=== PATIENT | male | born 1945 | race Caucasian/White ===

== ENCOUNTER → 2017-12-08 08:02 | Outpatient (CLI) | payer OTHER | END | disposition home or self-care (01) | LOC: LAB 08:02 | DX: N18.2 Chronic kidney disease, stage 2 (mild) (principal); I10 Essential (primary) hypertension; R80.8 Other proteinuria; E11.21 Type 2 diabetes mellitus with diabetic nephropathy; I11.9 Hypertensive heart disease without heart failure; E11.9 Type 2 diabetes mellitus without complications; E78.2 Mixed hyperlipidemia; E03.8 Other specified hypothyroidism; E55.9 Vitamin D deficiency, unspecified; E58 Dietary calcium deficiency ==

== ENCOUNTER 2018-07-11 08:30 | Outpatient (CLI) | payer OTHER | END 2018-07-11 08:40 | disposition home or self-care (01) | LOC: SONOGRAMA 08:30 | DX: N43.40 Spermatocele of epididymis, unspecified (principal) ==

== ENCOUNTER → 2018-07-16 06:53 | Outpatient (CLI) | payer OTHER | END | disposition home or self-care (01) | LOC: LAB 06:53 | DX: E53.8 Deficiency of other specified B group vitamins (principal); D64.89 Other specified anemias; C18.9 Malignant neoplasm of colon, unspecified; I11.9 Hypertensive heart disease without heart failure; R06.02 Shortness of breath ==

== ENCOUNTER 2018-07-17 09:43 | Outpatient (CLI) | payer OTHER | END 2018-07-17 10:00 | disposition home or self-care (01) | LOC: LAB 09:43 | DX: Z12.11 Encounter for screening for malignant neoplasm of colon (principal); C18.9 Malignant neoplasm of colon, unspecified; D64.89 Other specified anemias; E03.8 Other specified hypothyroidism; E53.8 Deficiency of other specified B group vitamins ==

== ENCOUNTER 2018-08-15 11:11 | Outpatient (CLI) | payer OTHER | END 2018-08-15 11:22 | disposition home or self-care (01) | LOC: LAB 11:11 | DX: B20 Human immunodeficiency virus [HIV] disease (principal) ==

== ENCOUNTER → 2019-07-08 07:09 | Outpatient (CLI) | payer OTHER | END | disposition home or self-care (01) | LOC: LAB 07:09 | DX: R10.84 Generalized abdominal pain (principal); A05.8 Other specified bacterial foodborne intoxications; Z12.11 Encounter for screening for malignant neoplasm of colon ==

== ENCOUNTER 2019-07-17 06:13 | Outpatient (CLI) | payer OTHER | END 2019-07-17 06:21 | disposition home or self-care (01) | LOC: LAB 06:13 | DX: C61 Malignant neoplasm of prostate (principal); I10 Essential (primary) hypertension; E11.21 Type 2 diabetes mellitus with diabetic nephropathy; R80.8 Other proteinuria ==

== ENCOUNTER → 2020-07-15 06:14 | Outpatient (CLI) | payer OTHER | END | disposition home or self-care (01) | LOC: LAB 06:14 | PROVIDERS: ATTEND Internal Medicine Cardiovascular Disease | DX: I10 Essential (primary) hypertension (principal); E11.9 Type 2 diabetes mellitus without complications; E03.8 Other specified hypothyroidism; E78.2 Mixed hyperlipidemia; Z12.11 Encounter for screening for malignant neoplasm of colon; N40.0 Benign prostatic hyperplasia without lower urinary tract symptoms; B20 Human immunodeficiency virus [HIV] disease; Z11.4 Encounter for screening for human immunodeficiency virus [HIV] ==

== ENCOUNTER 2020-08-02 08:50 | Outpatient (CLI) | payer OTHER | END 2020-08-02 08:59 | disposition home or self-care (01) | LOC: TOM 08:50 | PROVIDERS: ATTEND Urology | DX: K57.90 Diverticulosis of intestine, part unspecified, without perforation or abscess without bleeding (principal); R31.21 Asymptomatic microscopic hematuria; C61 Malignant neoplasm of prostate; N52.31 Erectile dysfunction following radical prostatectomy | CPT/HCPCS: 74178; Q9965 ==

== ENCOUNTER 2021-05-11 08:00 | Outpatient (CLI) | payer OTHER | END 2021-05-11 08:30 | disposition home or self-care (01) | LOC: PPH VACUNA 08:00 | DX: Z23 Encounter for immunization (principal) ==

== ENCOUNTER 2021-10-17 11:24 | Outpatient (CLI) | payer OTHER | END 2021-10-17 11:31 | disposition home or self-care (01) | LOC: RAD 11:24 | PROVIDERS: ATTEND Internal Medicine Cardiovascular Disease | DX: J44.9 Chronic obstructive pulmonary disease, unspecified (principal) ==

== ENCOUNTER 2021-12-09 08:00 | Outpatient (CLI) | payer OTHER | END 2021-12-09 08:30 | disposition home or self-care (01) | LOC: PPH VACUNA 08:00 | PROVIDERS: ATTEND Emergency Medicine Pediatric Emergency Medicine | DX: Z23 Encounter for immunization (principal) ==

== ENCOUNTER 2023-05-02 11:43 | Outpatient (CLI) | payer OTHER | END 2023-05-02 11:54 | disposition home or self-care (01) | LOC: TOM 11:43 | PROVIDERS: ATTEND Internal Medicine Cardiovascular Disease | DX: R51.9 Headache, unspecified (principal) ==

== ENCOUNTER 2023-12-24 08:11 | Emergency (ER) | payer OTHER ==
[~2023-12-24] VITALS: Ht 177.8 cm; Wt 75.3 kg
[2023-12-24] MEDS ORDERED: GLUMETZA1000 MG PO (08:29)
[2023-12-24] MEDS ORDERED: COZAAR50 MG PO (08:30)
[2023-12-24] MEDS ORDERED: SYNTHROID88 MCG PO (08:30)
[2023-12-24] MEDS ORDERED: METRONIDAZOLE/SODIUM CHLORIDE 500 MG/100 ML PIGGYBACK IV ONE (08:45)
[2023-12-24] MEDS ORDERED: DIPHENOXYLATE HCL/ATROPINE 1 UDTAB TABLET PO ONE (08:45)
[2023-12-24] MEDS ORDERED: FAMOtidine 10 MG/ML (4ML VIAL) IV PUSH ONE (08:45)
[2023-12-24] MEDS ORDERED: ONDANSETRON HCL 2 MG/ML VIAL IV ONE (08:45)
[2023-12-24] MEDS ORDERED: 0.9 % SODIUM CHLORIDE 1,000 ML IV SCH (08:45)
[2023-12-24 09:05] LABS: HEMATOCRIT 41.2 % (39.0-48.0); HEMOGLOBIN 14.6 g/dL (13-16.00); MEAN CELL VOLUME 88.6 fL (80.0-100.00); MEAN CORPUSCULAR HEMOGLOBIN 31.3 pg (27.00-32.0); MEAN CORPUSCULAR HGB CONC 35.4 g/dl (32.0-36.0); PLATELET COUNT 213 K/uL (150-450); RED BLOOD COUNT 4.65 M/uL (4.00-6.00); RED CELL DISTRIBUTION WIDTH 13.6 % (11.5-14.5)
[2023-12-24 09:40] LABS: ALBUMIN 3.6 gm/dL (3.4-5.0); BILIRUBIN TOTAL 1.09 mg/dL (0.3-1.2); CALCIUM 8.6 mg/dL (8.5-10.1); CREATININE SERUM 1.08 mg/dL (0.70-1.30); GFR 66.3; POTASSIUM 3.58 mEq/L (3.5-5.1); TOTAL PROTEIN 7.6 gm/dL (6.4-8.2)
[2023-12-24] MEDS ORDERED: METRONIDAZOLE500 MG PO (10:29)
[2023-12-24] MEDS ORDERED: PEPCID AC20 MG PO (10:29)
[2023-12-24] MEDS ORDERED: LEVSIN/SL0.125 MG SL (10:29)
== END 2023-12-24 10:37 | disposition home or self-care (01) ==
LOC: ER 08:11
PROVIDERS: General Practice
DX: R11.2 Nausea with vomiting, unspecified (principal); K52.9 Noninfective gastroenteritis and colitis, unspecified; R10.9 Unspecified abdominal pain; I10 Essential (primary) hypertension; E11.9 Type 2 diabetes mellitus without complications; Z79.84 Long term (current) use of oral hypoglycemic drugs
CPT/HCPCS: 36415; 96365; 96366; 99282; J2405; J3490 ×2; J7030

== ENCOUNTER 2024-04-17 07:19 | Outpatient (CLI) | payer OTHER ==
[~2024-04-17 07:19] MED LIST: COZAAR50 MG PO; GLUMETZA1000 MG PO; LEVSIN/SL0.125 MG SL; METRONIDAZOLE500 MG PO; PEPCID AC20 MG PO; SYNTHROID88 MCG PO
== END 2024-04-17 07:21 | disposition home or self-care (01) ==
LOC: RAD 07:19
PROVIDERS: ATTEND Specialist
DX: I70.0 Atherosclerosis of aorta (principal)

== ENCOUNTER 2024-11-14 07:50 | Outpatient (CLI) | payer OTHER | END 2024-11-14 07:52 | disposition home or self-care (01) | LOC: TOM 07:50 | PROVIDERS: ATTEND Specialist | DX: K80.20 Calculus of gallbladder without cholecystitis without obstruction (principal); K40.20 Bilateral inguinal hernia, without obstruction or gangrene, not specified as recurrent; K40.90 Unilateral inguinal hernia, without obstruction or gangrene, not specified as recurrent | CPT/HCPCS: 74177; Q9965 ==

== ENCOUNTER 2025-04-30 11:15 | Outpatient (CLI) | payer OTHER | END 2025-04-30 14:52 | disposition home or self-care (01) | LOC: RAD 11:15 | PROVIDERS: ATTEND Ophthalmology | DX: Z01.811 Encounter for preprocedural respiratory examination (principal); I10 Essential (primary) hypertension ==